=== PATIENT | female | born 1990 | race Caucasian/White ===

== ENCOUNTER 2017-05-07 21:27 | Emergency (ER) | payer SELFPAY ==
[~2017-05-07] VITALS: Ht 154.9 cm; Wt 60.0 kg
[2017-05-07 21:28] VITALS: BP 139/70; PULSE 90; RESP 16; TEMP 97.7; O2SAT 100
[2017-05-07] MEDS ORDERED: BACT400T PO (22:25)
[2017-05-07] MEDS ORDERED: SODIUM CHLOR 0.9% 1000 ML INJ 1,000 ML IV SCH (22:26)
[2017-05-07] MEDS ORDERED: diphenhydrAMINE HCL 50 MG/ML VIAL IVP ONE (22:30)
[2017-05-07] MEDS ORDERED: SODIUM CHLORIDE 0.9% FLUSH 10 ML FLUSH IV FLUSH PRN (22:30)
[2017-05-07] MEDS ORDERED: methylPREDNISolone SOD SUCC 125 MG/2 ML VIAL IV PUSH ONE (22:30)
[2017-05-07] MEDS ORDERED: FAMOTIDINE 20 MG/2 ML VIAL IV PUSH ONE (22:30)
--- NOTE | 2017-05-07 22:30 | PD ---
HPI Chief Complaint: Allergic/Adverse Reaction Time Seen by Provider: 22:21 Travel History International Travel<30 days: No Contact w/Intl Traveler<30days: No Traveled to known affect area: No History of Present Illness HPI 26-year-old female here for evaluation of possible allergic reaction. About 2 hours prior to my assessment the patient developed hive-like/pruritic lesions on her face, chest, and arms as well as swelling of her lip. She also feels a strain sensation in her throat. No respiratory difficulty. No difficulty swallowing. No abdominal pain, nausea, or vomiting. Patient is allergic to penicillin, however denies any other known allergies. She has history of IVDU, last use was one week ago, is currently on Bactrim for a cellulitis which she states has resolved. Patient also tells me that she ate peanuts earlier today, however has never had an allergic reaction to peanuts before. PFSH Past Medical History Medical History: Denies Significant Hx ?: Unknown Past Surgical History Surgical History: No Previous Surgery Social History Alcohol Use: Yes (OCCASIONALLY) Tobacco Use: Yes (06/08 PPD) Substance Use: Yes (LIAM FORMERLY) Allergies-Medications (Allergen,Severity, Reaction): Coded Allergies: penicillin G (Unverified Allergy, Intermediate, Hives, 05/07/17) Reported Meds & Prescriptions Reported Meds & Active Scripts Active Reported Bactrim (Sulfamethoxazole-Trimethoprim) 400-80 Mg Tab 1 Tab PO BID Review of Systems Except as stated in HPI: all other systems reviewed are Neg Physical Exam Narrative GENERAL: Well-developed, well-nourished, awake, alert, comfortable, no apparent distress. SKIN: Focused skin assessment warm/dry. Diffuse hive-like lesions. Tract lawler on left forearm without warmth or erythema. HEAD: Atraumatic. Normocephalic. EYES: Pupils equal and round. No scleral icterus. No injection or drainage. ENT: No nasal bleeding or discharge. Mucous membranes pink and moist. Mild lower lip swelling. No tongue swelling. No drooling or stridor. Normal phonation. NECK: Trachea midline. No JVD. CARDIOVASCULAR: Regular rate and rhythm. RESPIRATORY: No accessory muscle use. Clear to auscultation. Breath sounds equal bilaterally. GASTROINTESTINAL: Abdomen soft, non-tender, nondistended. MUSCULOSKELETAL: No obvious deformities. No clubbing. No cyanosis. No edema. NEUROLOGICAL: Awake and alert. No obvious cranial nerve deficits. Motor grossly within normal limits. Normal speech. PSYCHIATRIC: Appropriate mood and affect; insight and judgment normal. Data Data Last Documented VS Vital Signs Date Time Temp Pulse Resp B/P (MAP) Pulse Ox O2 Delivery O2 Flow Rate FiO2 05/07/17 22:32 94 18 125/77 (93) 100 Room Air 05/07/17 21:28 97.7 Orders Orders Basic Metabolic Panel (Bmp) (05/07/17 22:26) Complete Blood Count With Diff (05/07/17 22:26) Ecg Monitoring (05/07/17 22:26) Iv Access Insert/Monitor (05/07/17 22:26) Oximetry (05/07/17 22:) Diphenhydramine Inj (Benadryl Inj) (05/07/17 22:30) Methylprednisolone So Succ Inj (Solumedr (05/07/17 22:30) Famotidine Inj (Pepcid Inj) (05/07/17 22:30) Sodium Chlor 0.9% 1000 Ml Inj (Ns 1000 M (05/07/17 22:26) Sodium Chloride 0.9% Flush (Ns Flush) (05/07/17 22:30) Beta Hcg (Quant/Titer) (05/07/17 22:26) Labs Laboratory Tests Test 05/07/17 22:32 White Blood Count 9.4 TH/MM3 Red Blood Count 4.91 MIL/MM3 Hemoglobin 14.4 GM/DL Hematocrit 41.8 % Mean Corpuscular Volume 85.0 FL Mean Corpuscular Hemoglobin 29.3 PG Mean Corpuscular Hemoglobin Concent 34.4 % Red Cell Distribution Width 13.9 % Platelet Count 274 TH/MM3 Mean Platelet Volume 8.6 FL Neutrophils (%) (Auto) 68.0 % Lymphocytes (%) (Auto) 23.1 % Monocytes (%) (Auto) 8.1 % Eosinophils (%) (Auto) 0.6 % Basophils (%) (Auto) 0.2 % Neutrophils # (Auto) 6.4 TH/MM3 Lymphocytes # (Auto) 2.2 TH/MM3 Monocytes # (Auto) 0.8 TH/MM3 Eosinophils # (Auto) 0.1 TH/MM3 Basophils # (Auto) 0.0 TH/MM3 CBC Comment DIFF FINAL Differential Comment Blood Urea Nitrogen 9 MG/DL Creatinine 0.56 MG/DL Random Glucose 84 MG/DL Calcium Level 9.4 MG/DL Sodium Level 137 MEQ/L Potassium Level 4.0 MEQ/L Chloride Level 100 MEQ/L Carbon Dioxide Level 30.2 MEQ/L Anion Gap 7 MEQ/L Estimat Glomerular Filtration Rate 132 ML/MIN Human Chorionic Gonadotropin, Quant LESS THAN 1 MIU/ML MDM Medical Decision Making Medical Screen Exam Complete: Yes Emergency Medical Condition: Yes Differential Diagnosis Allergic reaction, anaphylaxis Narrative Course Patient is currently on Bactrim for a skin infection which she states has improved. She has been on it for about 1 week. She also ate peanuts today who advised that she avoid contact with both of these. Patient has had like lesions and mild lower lip swelling. She is certainly not an anaphylactic shock. She will be treated with IV Solu-Medrol, Pepcid, and IV Benadryl and will be observed for response to treatment. CBC and BMP are unremarkable. Beta hCG is negative. Patient was given IV Solu-Medrol, IV Pepcid, and IV Benadryl and was observed in the emergency department for several hours with significant improvement in symptoms. She feels better and would like to be discharged home. I'll discharge her home with a prescription for prednisone as well as an EpiPen. I have advised that she stop taking the Bactrim and avoid peanuts. She was advised follow-up with a primary care physician this week. She was informed on when to return to the emergency department. She verbalizes understanding and agreement with plan. Diagnosis Primary Impression: Allergic reaction Qualified Codes: T78.40XA - Allergy, unspecified, initial encounter Referrals: Primary Care Physician 3 days Additional Instructions: Follow-up with a primary care physician this week. Stop taking Bactrim. Avoid peanuts. Return to the emergency department for worsening symptoms or any other concerns. Scripts Epinephrine Inj (Epipen 2-Ghassan Inj) 0.3 Mg/0.3 Ml Pfpen 0.3 MG IM ONCE Y for ALLERGIC REACTION, #1 PACK 0 Refills Prov: Naeem Schultz MD 05/08/17 Prednisone (Prednisone) 50 Mg Tab 50 MG PO DAILY for 5 Days, #5 TAB 0 Refills Prov: Naeem Schultz MD 05/08/17 Disposition: 01 DISCHARGE HOME Condition: Stable Naeem Schultz MD May 07, 2017 22:30
[2017-05-07 22:32] VITALS: BP 125/77; PULSE 94; RESP 18; O2SAT 100
[2017-05-07 22:55] LABS: AUTOMATED NEUTROPHIL # 6.4 TH/MM3 (1.8-7.7); BASOPHIL % 0.2 % (0.0-2.0); EOSINOPHIL # 0.1 TH/MM3 (0-0.4); EOSINOPHIL % 0.6 % (0.0-4.0); HEMATOCRIT 41.8 % (35.0-46.0); HEMO FLAGS DIFF FINAL; LYMPH % 23.1 % (9.0-44.0); LYMPHOCYTE # 2.2 TH/MM3 (1.0-4.8); MEAN CORPUSCULAR HEMOGLOBIN 29.3 PG (27.0-34.0); MEAN CORPUSCULAR HGB CONC 34.4 % (32.0-36.0); MONO % 8.1 % (0.0-8.0); PLATELET COUNT 274 TH/MM3 (150-450); RED BLOOD COUNT 4.91 MIL/MM3 (4.00-5.30); RED CELL DISTRIBUTION WIDTH 13.9 % (11.6-17.2); WHITE BLOOD COUNT 9.4 TH/MM3 (4.0-11.0)
[2017-05-07 23:14] LABS: BETA HCG QUANT LESS THAN 1 MIU/ML (0-5)
[2017-05-07 23:18] LABS: ANION GAP 7 MEQ/L (5-15); BICARBONATE 30.2 MEQ/L (21.0-32.0); BLOOD UREA NITROGEN 9 MG/DL (7-18); CHLORIDE 100 MEQ/L (98-107); GLOMERULAR FILTRATION RATE 132 ML/MIN (>89); SODIUM (NA) 137 MEQ/L (136-145)
[2017-05-08] MEDS ORDERED: PRED50 PO (00:15)
[2017-05-08] MEDS ORDERED: EPIP0.3I IM (00:15)
[2017-05-08 00:16] VITALS: BP 113/75; PULSE 97; RESP 18; O2SAT 100
[2017-05-08 01:05] VITALS: BP 112/74; PULSE 86; RESP 18; O2SAT 99
[2017-05-08 01:25] VITALS: BP 132/74; PULSE 85; RESP 18; O2SAT 99
== END 2017-05-08 01:26 | disposition home or self-care (01) ==
LOC: NEPC 21:27
DX: T78.40XA Allergy, unspecified, initial encounter (principal); F17.200 Nicotine dependence, unspecified, uncomplicated; Z88.0 Allergy status to penicillin
CPT/HCPCS: 80048; 84702; 85025; 96374; 96375; 99284; J1200; J2930; J7030

== ENCOUNTER 2017-07-28 00:01 | Emergency (ER) | payer SELFPAY ==
[~2017-07-28] VITALS: Ht 157.5 cm; Wt 62.0 kg
[~2017-07-28 00:01] MED LIST: BACT400T PO; EPIP0.3I IM; PRED50 PO
[2017-07-28 00:04] VITALS: BP 152/79; PULSE 122; RESP 16; TEMP 100.5; O2SAT 97
[2017-07-29] MEDS ORDERED: BACT800T5 PO (01:11)
== END 2017-07-28 01:35 | disposition left against medical advice (07) ==
LOC: NED 00:01
DX: R22.9 Localized swelling, mass and lump, unspecified (principal); Z53.21 Procedure and treatment not carried out due to patient leaving prior to being seen by health care provider
CPT/HCPCS: 99281

== ENCOUNTER 2017-07-28 23:22 | Emergency (ER) | payer SELFPAY ==
[~2017-07-28] VITALS: Ht 157.5 cm; Wt 65.0 kg
[2017-07-28 23:23] VITALS: BP 141/80; PULSE 127; RESP 16; TEMP 99.4; O2SAT 95
--- NOTE | 2017-07-29 01:10 | PD ---
HPI Chief Complaint: Skin Problem Time Seen by Provider: 00:48 Travel History International Travel<30 days: No Contact w/Intl Traveler<30days: No Traveled to known affect area: No History of Present Illness HPI 26-year-old white female IV drug abuser presents emergency department with recurrent abscess to her right forearm from IV drug abuse. Patient denies any fever chills. Symptoms are moderate. No alleviating factors. Worsened by IV drug abuse. Up-to-date with immunizations. Pain is mild. PFSH Past Medical History Narrative Medical Abscess, IV drug abuse Immunizations Current: Yes Tetanus Vaccination: < 5 Years Influenza Vaccination: No ?: Unknown LMP: 06/29/17 Past Surgical History Surgical History: No Previous Surgery Social History Alcohol Use: Yes (OCCASIONALLY) Tobacco Use: Yes (06/08 PPD) Substance Use: Yes (LIAM FORMERLY) Allergies-Medications (Allergen,Severity, Reaction): Coded Allergies: penicillin G (Unverified Allergy, Intermediate, Hives, 07/28/17) Reported Meds & Prescriptions Reported Meds & Active Scripts Active Epipen 2-Ghassan Inj (Epinephrine) 0.3 Mg/0.3 Ml Pfpen 0.3 Mg IM ONCE PRN Prednisone 50 Mg Tab 50 Mg PO DAILY 5 Days Reported Bactrim (Sulfamethoxazole-Trimethoprim) 400-80 Mg Tab 1 Tab PO BID Review of Systems General / Constitutional: No: Fever Eyes: No: Visual changes HENT: No: Headaches Cardiovascular: No: Chest Pain or Discomfort Respiratory: No: Shortness of Breath Gastrointestinal: No: Abdominal Pain Genitourinary: No: Dysuria Musculoskeletal: No: Pain Skin: Positive Rash, Positive Lumps Neurologic: No: Weakness Psychiatric: No: Depression Endocrine: No: Polydipsia Hematologic/Lymphatic: No: Easy Bruising Physical Exam Narrative GENERAL: Well-developed, well-nourished in no acute distress. Nontoxic appearing. HEAD: Normocephalic, atraumatic. EYES: Pupils equal round and reactive. Extraocular motions intact. No scleral icterus. No injection or drainage. ENT: TMs clear without erythema. The external auditory canals clear. Nose: clear . Posterior pharynx is pink and moist. No tonsillar edema or exudate. Uvula midline. Airway patent. NECK: Trachea midline.Supple, nontender, moves head freely. No central bony tenderness or spasm. CARDIOVASCULAR: Regular rate and rhythm without murmurs, gallops, or rubs. RESPIRATORY: Clear to auscultation. Breath sounds equal bilaterally. No wheezes , rales, or rhonchi. GASTROINTESTINAL: Abdomen soft, non-tender, nondistended. No hepato-splenomegaly , or palpable masses. No guarding. EXTREMITIES: No clubbing, cyanosis, or edema. No joint tenderness, effusion, or edema noted. Patient has multiple track lawler on both hands, forearms, and an acute ophiasis. Patient has multiple superficial abscesses to the dorsal right wrist and forearm. BACK: Nontender without deformity or crepitance. No flank tenderness. Data Data Last Documented VS Vital Signs Date Time Temp Pulse Resp B/P (MAP) Pulse Ox O2 Delivery O2 Flow Rate FiO2 07/28/17 23:23 99.4 127 16 141/80 (100) 95 Room Air MDM Medical Decision Making Medical Screen Exam Complete: Yes Emergency Medical Condition: Yes Medical Record Reviewed: Yes Differential Diagnosis MDM: High Differential diagnoses: Abscess, folliculitis, cellulitis, lymphangitis, abrasion, contact dermatitis Narrative Course Incision and drainage has been performed. Patient was given Bactrim DS. Procedures Procedure Narrative I&D abscess: 3 right forearm After the risks and benefits were discussed the following procedure was performed. The skin is prepped and draped in the usual sterile fashion using Betadine. The abscess is anesthetized with 1% lidocaine with epinephrine. After adequate anesthesia, an 11 blade scalpel is used to make a 1.5 cm central incision. Perulant material is expressed. The wound is cleansed deeply using saline on Q- tips. The wound is packed open using iodoform gauze. A clean dressing is applied. The patient tolerated the procedure well. There was no complications. Follow-up instructions were given to the patient. Diagnosis Primary Impression: Right forearm abscesses Additional Impression: IV drug abuse Patient Instructions: General Instructions Additional Instructions: Rest. Elevation. keep clean and dry. remove the packing in two days. Daily wound care with soap, water and Neosporin. Three Advil every 6 hours. Bactrim DS. Follow-up with [facility] for detox. Follow-up with a primary care doctor in 2-3 days. Return to the ER for any problems. Med/Other Pt SpecificInfo: Prescription(s) given Disposition: 01 DISCHARGE HOME Condition: Stable Kevin Samano Jul 29, 2017 01:10
[2017-07-29] MEDS ORDERED: BACT800T5 PO (01:11)
[2017-07-29] MEDS ORDERED: LIDOCAINE 1%/EPINEPHrine 1:100,000 SOLN 20 ML VIAL INFIL ONE (01:15)
[2017-07-29] MEDS ORDERED: LIDOCAINE 1%/EPINEPHrine 1:100,000 SOLN 30 ML VIAL INFIL ONE (02:00)
== END 2017-07-29 01:31 | disposition home or self-care (01) ==
LOC: NEPD 23:22
DX: L02.413 Cutaneous abscess of right upper limb (principal); F19.10 Other psychoactive substance abuse, uncomplicated; F17.200 Nicotine dependence, unspecified, uncomplicated; Z88.0 Allergy status to penicillin
CPT/HCPCS: 10061

== ENCOUNTER 2017-09-08 20:15 | Inpatient (IN) | payer SELFPAY ==
[~2017-09-08] VITALS: Ht 154.9 cm; Wt 55.4 kg
[~2017-09-08 20:15] MED LIST changes: +BACT800T5 PO
[2017-09-08 20:22] VITALS: BP 139/75; PULSE 118; RESP 16; TEMP 102.5; O2SAT 100
[2017-09-08] MEDS ORDERED: IBUPROFEN 800 MG TAB PO ONE (23:45)
[2017-09-08] MEDS ORDERED: SODIUM CHLOR 0.9% 1000 ML INJ 1,000 ML IV ONE (23:45)
[2017-09-08] MEDS ORDERED: SODIUM CHLOR 0.9% 1000 ML INJ 800 ML IV ONE (23:45)
[2017-09-09] VITALS (9 sets, daily range): BP systolic 109–129; BP diastolic 55–76; PULSE 89–100; RESP 16–20; TEMP 96.1–99.9; O2SAT 98–100
--- NOTE | 2017-09-09 00:18 | PD ---
HPI Chief Complaint: Skin Problem Time Seen by Provider: 23:33 Travel History International Travel<30 days: No Contact w/Intl Traveler<30days: No Traveled to known affect area: No History of Present Illness HPI Patient is a 26-year-old female presenting to emerge from for evaluation of left forearm abscess. Patient admits to injecting IV heroin, her symptoms started 1 week ago getting progressively worse. Patient states her pain is a 7 out of 10 and shooting and stabbing in nature. The pain is intermittent in nature, she reports feeling pressure into her thumb. Patient is not taking anything to alleviate the pain. Symptom onset was gradual, symptoms are severe in nature. She denies any fever or chills but states she does not feel well. She further denies any nausea, vomiting, headache, abdominal pain or chest pain. PFSH Past Medical History Medical History: Denies Significant Hx Immunizations Current: Yes Influenza Vaccination: No ?: Not LMP: UNKNOWN : 1 Para: 1 Past Surgical History Surgical History: No Previous Surgery Social History Alcohol Use: No Tobacco Use: Yes (06/08 PPD) Substance Use: Yes (LIAM FORMERLY) Allergies-Medications (Allergen,Severity, Reaction): Coded Allergies: penicillin G (Unverified Allergy, Intermediate, Hives, 09/08/17) Reported Meds & Prescriptions Reported Meds & Active Scripts Active Bactrim DS (Sulfamethoxazole-Trimethoprim) 800-160 Mg Tab 1 Tab PO BID Epipen 2-Ghassan Inj (Epinephrine) 0.3 Mg/0.3 Ml Pfpen 0.3 Mg IM ONCE PRN Prednisone 50 Mg Tab 50 Mg PO DAILY 5 Days Reported Bactrim (Sulfamethoxazole-Trimethoprim) 400-80 Mg Tab 1 Tab PO BID Review of Systems Except as stated in HPI: all other systems reviewed are Neg General / Constitutional: Positive: Fever, Chills HENT: No: Headaches Cardiovascular: No: Chest Pain or Discomfort Respiratory: No: Shortness of Breath Gastrointestinal: No: Nausea, Abdominal Pain Musculoskeletal: Positive: Myalgias, Pain Skin: Positive Lumps, Positive Change in Pigmentation Neurologic: No: Weakness Physical Exam Narrative GENERAL: Thin, well-developed, intoxicated appearing female. Presenting in no acute distress. SKIN: Warm and dry. 10 cm x 5 cm area of induration to the left antecubital fossa, there are 2 areas of fluctuance just distal to the AC. Warmth and tenderness on palpation. HEAD: Atraumatic. Normocephalic. EYES: Pupils equal and round. No scleral icterus. No injection or drainage. ENT: No nasal bleeding or discharge. Mucous membranes pink and moist. NECK: Trachea midline. No JVD. CARDIOVASCULAR: Tachycardic RESPIRATORY: No accessory muscle use. Clear to auscultation. Breath sounds equal bilaterally. GASTROINTESTINAL: Abdomen soft, non-tender, nondistended. Hepatic and splenic margins not palpable. MUSCULOSKELETAL: Extremities without clubbing, cyanosis, or edema. No obvious deformities. NEUROLOGICAL: Awake and alert. No obvious cranial nerve deficits. Motor grossly within normal limits. Five out of 5 muscle strength in the arms and legs. Normal speech. PSYCHIATRIC: Appropriate mood and affect; insight and judgment normal. Data Data Last Documented VS Vital Signs Date Time Temp Pulse Resp B/P (MAP) Pulse Ox O2 Delivery O2 Flow Rate FiO2 09/09/17 01:05 95 16 100 Room Air 09/08/17 20:22 102.5 Orders Orders Sepsis Workup Initiated (09/08/17 ) Complete Blood Count With Diff (09/08/17 23:45) Comprehensive Metabolic Panel (09/08/17 23:45) Lactic Acid Sepsis Protocol (09/08/17 23:45) Blood Culture (09/08/17 23:45) Chest, Single Ap (09/08/17 23:45) Blood Glucose (09/08/17 23:45) Ecg Monitoring (09/08/17 23:45) Iv Access Insert/Monitor (09/08/17 23:45) Oximetry (09/08/17 23:45) Ibuprofen (Motrin) (09/08/17 23:45) Sodium Chlor 0.9% 1000 Ml Inj (Ns 1000 M (09/08/17 23:45) Sodium Chlor 0.9% 1000 Ml Inj (Ns 1000 M (09/08/17 23:45) Ct Forearm W Iv Contrast (09/08/17 ) Ct Humerus W Iv Contrast (09/08/17 ) Ed Urine Pregnancytest Poc (09/08/17 23:45) Electrocardiogram (09/08/17 ) Labs Laboratory Tests Test 09/09/17 00:15 White Blood Count 11.6 TH/MM3 Red Blood Count 5.12 MIL/MM3 Hemoglobin 13.8 GM/DL Hematocrit 41.4 % Mean Corpuscular Volume 80.9 FL Mean Corpuscular Hemoglobin 27.0 PG Mean Corpuscular Hemoglobin Concent 33.4 % Red Cell Distribution Width 13.7 % Platelet Count 277 TH/MM3 Mean Platelet Volume 8.0 FL Neutrophils (%) (Auto) 77.5 % Lymphocytes (%) (Auto) 13.6 % Monocytes (%) (Auto) 6.5 % Eosinophils (%) (Auto) 1.9 % Basophils (%) (Auto) 0.5 % Neutrophils # (Auto) 9.0 TH/MM3 Lymphocytes # (Auto) 1.6 TH/MM3 Monocytes # (Auto) 0.8 TH/MM3 Eosinophils # (Auto) 0.2 TH/MM3 Basophils # (Auto) 0.1 TH/MM3 CBC Comment DIFF FINAL Differential Comment Blood Urea Nitrogen 9 MG/DL Creatinine 0.62 MG/DL Random Glucose 90 MG/DL Total Protein 8.9 GM/DL Albumin 3.8 GM/DL Calcium Level 9.6 MG/DL Alkaline Phosphatase 131 U/L Aspartate Amino Transf (AST/SGOT) 45 U/L Alanine Aminotransferase (ALT/SGPT) 68 U/L Total Bilirubin 0.5 MG/DL Sodium Level 136 MEQ/L Potassium Level 3.7 MEQ/L Chloride Level 99 MEQ/L Carbon Dioxide Level 28.9 MEQ/L Anion Gap 8 MEQ/L Estimat Glomerular Filtration Rate 117 ML/MIN Lactic Acid Level 1.1 mmol/L [facility] Medical Decision Making Medical Screen Exam Complete: Yes Emergency Medical Condition: Yes Interpretation(s) Vital Signs Date Time Temp Pulse Resp B/P (MAP) Pulse Ox O2 Delivery O2 Flow Rate FiO2 09/08/17 20:22 102.5 118 16 139/75 (96) 100 Room Air Differential Diagnosis Sepsis versus cellulitis versus abscess versus metabolic abnormality versus other Narrative Course Patient is a 26-year-old IV drug user presenting with fever, tachycardia and abscesses to her left AC. Sepsis workup initiated. Ibuprofen, IV fluids ordered. Care of patient transferred to Dr. Osborne in a medical bed due to level of acuity. Stephanie Jiang Sep 09, 2017 00:18
[2017-09-09 00:32] LABS: BASOPHIL # 0.1 TH/MM3 (0-0.2); BASOPHIL % 0.5 % (0.0-2.0); EOSINOPHIL # 0.2 TH/MM3 (0-0.4); EOSINOPHIL % 1.9 % (0.0-4.0); HEMATOCRIT 41.4 % (35.0-46.0); HEMOGLOBIN 13.8 GM/DL (11.6-15.3); LYMPH % 13.6 % (9.0-44.0); LYMPHOCYTE # 1.6 TH/MM3 (1.0-4.8); MEAN CELL VOLUME 80.9 FL (80.0-100.0); MEAN CORPUSCULAR HGB CONC 33.4 % (32.0-36.0); MONO % 6.5 % (0.0-8.0); MONOCYTE # 0.8 TH/MM3 (0-0.9); NEUT % 77.5 % (16.0-70.0); PLATELET COUNT 277 TH/MM3 (150-450); RED BLOOD COUNT 5.12 MIL/MM3 (4.00-5.30); RED CELL DISTRIBUTION WIDTH 13.7 % (11.6-17.2); WHITE BLOOD COUNT 11.6 TH/MM3 (4.0-11.0)
[2017-09-09 00:48] LABS: ALBUMIN 3.8 GM/DL (3.4-5.0); ALT (GPT) 68 U/L (10-53); AST (GOT) 45 U/L (15-37); BICARBONATE 28.9 MEQ/L (21.0-32.0); BLOOD UREA NITROGEN 9 MG/DL (7-18); CALCIUM 9.6 MG/DL (8.5-10.1); CHLORIDE 99 MEQ/L (98-107); CREATININE 0.62 MG/DL (0.50-1.00); GLOMERULAR FILTRATION RATE 117 ML/MIN (>89); GLUCOSE,RANDOM 90 MG/DL (74-106); SODIUM (NA) 136 MEQ/L (136-145)
[2017-09-09 00:50] LABS: ALKALINE PHOSPHATASE 131 U/L (45-117); TOTAL BILIRUBIN ADULT 0.5 MG/DL (0.2-1.0); TOTAL PROTEIN 8.9 GM/DL (6.4-8.2)
--- NOTE | 2017-09-09 01:22 | RADRPT ---
EXAM DATE/TIME: 09/09/2017 00:22 [facility] COMPARISON: CHEST SINGLE AP, May 10, 2016, 12:54. INDICATIONS : Left upper arm abscess with fever. MEDICAL HISTORY : None. SURGICAL HISTORY : None. ENCOUNTER: Initial ACUITY: 1 day PAIN SCORE: 0/10 LOCATION: Bilateral chest FINDINGS: Single AP view of the chest. The lungs are clear. Cardiomediastinal silhouette within normal limits. No evidence of pleural effusion or pneumothorax. CONCLUSION: No acute cardiopulmonary disease identified. Moy Silva MD on September 09, 2017 at 1:20 Board Certified Radiologist. This report was verified electronically.
[2017-09-09] MEDS ORDERED: LIDOCAINE 2%/EPINEPHrine 1:100,000 20ML MDV NERV BLOCK ONE (01:45)
[2017-09-09] MEDS ORDERED: VANCOMYCIN INJ 1,000 MG in SODIUM CHLOR 0.9% 250 ML INJ 250 ML IV ONE (02:00)
[2017-09-09] MEDS ORDERED: BISACODYL 10 MG SUPP RECTAL PRN (03:30)
[2017-09-09] MEDS ORDERED: ONDANSETRON HCL 4 MG/2 ML VIAL IVP PRN (03:30)
[2017-09-09] MEDS ORDERED: SODIUM CHLORIDE 0.9% FLUSH 10 ML FLUSH IV FLUSH PRN (03:30)
[2017-09-09] MEDS ORDERED: LACTULOSE SYRUP 20 GM/30 ML CUP PO PRN (03:30)
[2017-09-09] MEDS ORDERED: ACETAMINOPHEN 325 MG TAB PO PRN (03:30)
[2017-09-09] MEDS ORDERED: MAGNESIUM HYDROXIDE SUSP 30 ML CUP PO PRN (03:30)
[2017-09-09] MEDS ORDERED: Vancomycin Consult Pharmacy 1 EA OTHER SCH (03:30)
[2017-09-09] MEDS ORDERED: ACETAMINOPHEN/HYDROcodone 325 MG/5 MG TAB PO PRN (03:30)
[2017-09-09] MEDS ORDERED: SENNOSIDES 8.6 MG TAB PO PRN (03:30)
[2017-09-09] MEDS: SODIUM CHLOR 0.9% 1000 ML INJ 1,000 ML IV SCH ×2 (04:00→15:24)
--- NOTE | 2017-09-09 04:05 | HHI.HP ---
[facility] No Primary Care Physician Admission Diagnosis arm abscess x 2 and sepsis Diagnoses: (1) Sepsis Diagnosis: Principal (2) Abscess Diagnosis: Principal (3) IVDU (intravenous drug user) Diagnosis: Principal (4) Tobacco abuse Diagnosis: Principal Travel History International Travel<30 Days: No Contact w/Intl Traveler <30 Da: No Traveled to Known Affected Are: No History of Present Illness This is a 26-year-old female with a PMH of IVDU and Tobacco Abuse who presented to the ER with complaints of left forearm pain and swelling. Admits to injecting Heroin to left forearm recently. Reports symptoms ongoing for approx 1wk. Pain is constant, severe, 8/10, non-radiating, worse w/ movement. Denies associated fever or chills. On arrival, BP 139/75, HR 118, O2 sat 100% on RA, Temp 102.5. WBC 11.6. Chemistry unremarkable. LFTs mildly elevated. Lactic Acid normal. CXR with no acute findings. S/p I&D in ER, Blood Cultures and Vanc IV. Pt initially wanting to LEAVE [facility], however has ultimately agreed to stay for treatment. Review of Systems Except as stated in HPI: all other systems reviewed are Neg ROS: 14 point review of systems otherwise negative. Past Family Social History Past Medical History PMH: IVDU and Tobacco Abuse Past Surgical History PAST SURGICAL HISTORY: None Allergies: Coded Allergies: penicillin G (Unverified Allergy, Intermediate, Hives, 09/08/17) Family History PAST FAMILY HISTORY: Reviewed. No h/o DM or CAD Social History PAST SOCIAL HISTORY: Negative for alcohol. Smokes 1/4 ppd. +IVDU w/ Heroin, h/ o Cocaine and Marijuana. Physical Exam Vital Signs Vital Signs Date Time Temp Pulse Resp B/P (MAP) Pulse Ox O2 Delivery O2 Flow Rate FiO2 09/09/17 01:05 95 16 100 Room Air 09/08/17 20:22 102.5 118 16 139/75 (96) 100 Room Air Physical Exam PE: GENERAL: Young white female in no acute distress. Significant other at bedside. HEENT: PERRLA, EOMI. No scleral icterus or conjunctival pallor. No lid lag or facial droop. CARDIOVASCULAR: Regular rate and rhythm. No obvious murmurs to auscultation. No chest tenderness to palpation. RESPIRATORY: No obvious rhonchi or wheezing. Clear to auscultation. Breath sounds equal bilaterally. GASTROINTESTINAL: Abdomen soft, non-tender, nondistended. BS normal. MUSCULOSKELETAL: Extremities without clubbing, cyanosis, or edema. No obvious deformities. LUE s/p I&D, +erythema/edema NEUROLOGICAL: Awake, alert and oriented x4. No focal neurologic deficits. Moving both upper and lower extremities spontaneously. Laboratory Laboratory Tests Test 09/09/17 00:15 White Blood Count 11.6 Red Blood Count 5.12 Hemoglobin 13.8 Hematocrit 41.4 Mean Corpuscular Volume 80.9 Mean Corpuscular Hemoglobin 27.0 Mean Corpuscular Hemoglobin Concent 33.4 Red Cell Distribution Width 13.7 Platelet Count 277 Mean Platelet Volume 8.0 Neutrophils (%) (Auto) 77.5 Lymphocytes (%) (Auto) 13.6 Monocytes (%) (Auto) 6.5 Eosinophils (%) (Auto) 1.9 Basophils (%) (Auto) 0.5 Neutrophils # (Auto) 9.0 Lymphocytes # (Auto) 1.6 Monocytes # (Auto) 0.8 Eosinophils # (Auto) 0.2 Basophils # (Auto) 0.1 CBC Comment DIFF FINAL Differential Comment Blood Urea Nitrogen 9 Creatinine 0.62 Random Glucose 90 Total Protein 8.9 Albumin 3.8 Calcium Level 9.6 Alkaline Phosphatase 131 Aspartate Amino Transf (AST/SGOT) 45 Alanine Aminotransferase (ALT/SGPT) 68 Total Bilirubin 0.5 Sodium Level 136 Potassium Level 3.7 Chloride Level 99 Carbon Dioxide Level 28.9 Anion Gap 8 Estimat Glomerular Filtration Rate 117 Lactic Acid Level 1.1 Date/Time Source Procedure Growth Status 09/09/17 00:22 Blood Peripheral Aerobic Blood Culture Pending Received 09/09/17 00:22 Blood Peripheral Anaerobic Blood Culture Pending Received 09/09/17 03:25 Wound Arm Gram Stain Pending Received 09/09/17 03:25 Wound Arm Wound Culture Pending Received Result Diagram: 09/09/17 0015 09/09/1714 Caprini VTE Risk Assessment Caprini VTE Risk Assessment: No/Low Risk (score <= 1) Caprini Risk Assessment Model Point Value = 1 Point Value = 2 Point Value = 3 Point Value = 5 Age 41-60 Minor surgery BMI > 25 kg/m2 Swollen legs Varicose veins or History of unexplained or recurrent spontaneous Oral contraceptives or hormone replacement Sepsis (< 1 month) Serious lung disease, including pneumonia (< 1 month) Abnormal pulmonary function Acute myocardial infarction Congestive heart failure (< 1 month) History of inflammatory bowel disease Medical patient at bed rest Age 61-74 Arthroscopic surgery Major open surgery (> 45 min) Laparoscopic surgery (> 45 min) Malignancy Confined to bed (> 72 hours) Immobilizing plaster cast Central venous access Age >= 75 History of VTE Family history of VTE Factor V Leiden Prothrombin [id number] Lupus anticoagulant Anticardiolipin antibodies Elevated serum homocysteine Heparin-induced thrombocytopenia Other congenital or acquired thrombophilia Stroke (< 1 month) Elective arthroplasty Hip, pelvis, or leg fracture Acute spinal cord injury (< 1 month) Prophylaxis Regimen Total Risk Factor Score Risk Level Prophylaxis Regimen 0-1 Low Early ambulation 2 Moderate Order ONE of the following: *Sequential Compression Device (SCD) *Heparin 5000 units SQ BID 3-4 Higher Order ONE of the following medications: *Heparin 5000 units SQ TID *Enoxaparin/Lovenox 40 mg SQ daily (WT < 150 kg, CrCl > 30 mL/min) *Enoxaparin/Lovenox 30 mg SQ daily (WT < 150 kg, CrCl > 10-29 mL/min) *Enoxaparin/Lovenox 30 mg SQ BID (WT < 150 kg, CrCl > 30 mL/min) AND/OR *Sequential Compression Device (SCD) 5 or more Highest Order ONE of the following medications: *Heparin 5000 units SQ TID (Preferred with Epidurals) *Enoxaparin/Lovenox 40 mg SQ daily (WT < 150 kg, CrCl > 30 mL/min) *Enoxaparin/Lovenox 30 mg SQ daily (WT < 150 kg, CrCl > 10-29 mL/min) *Enoxaparin/Lovenox 30 mg SQ BID (WT < 150 kg, CrCl > 30 mL/min) AND *Sequential Compression Device (SCD) Assessment and Plan Problem List: (1) Sepsis ICD Code: A41.9 - Sepsis, unspecified organism (2) Abscess ICD Code: L02.91 - Cutaneous abscess, unspecified (3) Tobacco abuse ICD Code: Z72.0 - Tobacco use (4) IVDU (intravenous drug user) ICD Code: F19.90 - Other psychoactive substance use, unspecified, uncomplicated Assessment and Plan A/P: 1. Sepsis: Temp 102.5, HR 120's, WBC 11.6, Source-LUE Abscess. S/p I&D, follow Wound Culture and Blood Cultures. S/p Vanc in ER, will continue w/ IV Abx. 2. LUE Abscess: h/o IVDU w/ recent injection to site, now w/ abscess s/p I&D, follow up cultures, continue w/ IV Vanc/Cefepime. IVF for hydration. 3. IVDU: +Heroin, h/o Cocaine, admits to recent injection. Wanting to LEAVE AMA at first, +anxious. Start Clonidine po q8h and Ativan prn for withdrawal. 4. Tobacco Abuse: Pt counselled. Ativan/NicoDerm prn if needed. 5. DVT Prophylaxis: SCD/Teds. 6. Social work for d/c planning as needed. 7. Case discussed w/ ER physician at length, labs/records/imaging reviewed by [place] Physician Certification 2 Midnight Certification Type: Admission for Inpatient Services Order for Inpatient Services The services are ordered in accordance with Medicare regulations or non- Medicare payer requirements, as applicable. In the case of services not specified as inpatient-only, they are appropriately provided as inpatient services in accordance with the 2-midnight benchmark. Estimated LOS (days): 2 days is the estimated time the patient will need to remain in the hospital, assuming treatment plan goals are met and no additional complications. Post-Hospital Plan: Not yet determined Lenore Plunkett MD Sep 09, 2017 04:05
[2017-09-09] MEDS: CEFEPIME INJ 1,000 MG in SODIUM CHLORIDE 0.9% INJ 100 ML IV SCH ×2 (05:37→17:54)
[2017-09-09] MEDS: cloNIDine HCL 0.1 MG TAB PO SCH ×3 (06:00→21:25)
[2017-09-09] MEDS: LORazepam 2 MG/ML VIAL IV PUSH PRN ×2 (06:10→21:24)
[2017-09-09] MEDS ORDERED: KETOROLAC TROMETHAMINE 30 MG/ML (IVP) VIAL IV PUSH ONE (06:15)
[2017-09-09] MEDS ORDERED: VANCOMYCIN 1,000 MG/NS 250 ML IV SCH ×4 (09:00→15:00)
[2017-09-09] MEDS: DOCUSATE SODIUM 50 MG/SENNA 8.6 MG TAB PO SCH ×2 (09:00→21:00)
[2017-09-09] MEDS: MORPHINE SULFATE 2 MG/ML SYRINGE IV PUSH PRN ×2 (15:56→21:25)
--- NOTE | 2017-09-09 17:29 | EKG ---
Date Performed: 09/09/2017 Time Performed: 01:30:52 PTAGE: 26 years EKG: Sinus rhythm Compared to previous tracing, ST-T changes have improved NORMAL ECG NO PREVIOUS TRACING DOCTOR: Osvaldo Jaquez Interpretating Date/Time 09/09/2017 17:28:16
[2017-09-09] MEDS: SODIUM CHLORIDE 0.9% FLUSH 10 ML FLUSH IV FLUSH SCH ×2 (21:24→21:26)
[2017-09-10] MEDS ORDERED: INFLUENZA VIRUS VACCINE (QUADRIVALENT) 0.5 ML SYR IM ONE (10:00)
[2017-09-10] MEDS ORDERED: PHARMACY ORDERED LAB ONE (14:45)
--- NOTE | 2017-09-22 23:57 | PD ---
Physical Exam Narrative Patient transferred to my area of the ER where I proceeded to do a I&D on 2 forearm abscesses on the left arm in the antecubital forearm area. After that I decided I should admit her for IV antibiotics I gave her a gram of vancomycin IV fluid Data Data Orders Orders Sepsis Workup Initiated (09/08/17 ) Complete Blood Count With Diff (09/08/17 23:45) Comprehensive Metabolic Panel (09/08/17 23:45) Lactic Acid Sepsis Protocol (09/08/17 23:45) Blood Culture (09/08/17 23:45) Chest, Single Ap (09/08/17 23:45) Blood Glucose (09/08/17 23:45) Ecg Monitoring (09/08/17 23:45) Iv Access Insert/Monitor (09/08/17 23:45) Oximetry (09/08/17 23:45) Ibuprofen (Motrin) (09/08/17 23:45) Sodium Chlor 0.9% 1000 Ml Inj (Ns 1000 M (09/08/17 23:45) Sodium Chlor 0.9% 1000 Ml Inj (Ns 1000 M (09/08/17 23:45) Ed Urine Pregnancytest Poc (09/08/17 23:45) Electrocardiogram (09/08/17 ) Lidocai-Epi 2%-1:100,000 Inj (Xylocaine- (09/09/17 01:45) Vancomycin Inj (Vancomycin Inj) (09/09/17 02:00) Wound Culture And Gram Stain (09/09/17 03:22) Admit To Inpatient (09/09/17 ) Vital Signs (Adult) Q4H (09/09/17 03:27) Activity Oob Ad Radha (09/09/17 03:27) Materials Mgmt Tech / Telemetry .CONTINUOUS (09/09/17 03:27) Intake + Output TANIYA.QSHIFT (09/09/17 03:27) Diet Regular Basic (09/09/17 Breakfast) Sodium Chlor 0.9% 1000 Ml Inj (Ns 1000 M (09/09/17 03:27) Sodium Chloride 0.9% Flush (Ns Flush) (09/09/17 03:30) Sodium Chloride 0.9% Flush (Ns Flush) (09/09/17 09:00) Ondansetron Inj (Zofran Inj) (09/09/17 03:30) Case Management Consult (09/09/17 03:27) Scd Bilateral/Knee High TANIYA.BID (09/09/17 03:27) Bc Bilateral/Knee High TANIYA.QSHIFT (09/09/17 03:28) Acetaminophen (Tylenol) (09/09/17 03:30) Acetamin-Hydrocod 325-5 Mg ([place] 5-325 (09/09/17 03:30) Morphine Inj (Morphine Inj) (09/09/17 03:30) Docusate Sodium-Senna (Sigrid-Colace) (09/09/17 09:00) Magnesium Hydroxide Liq (Milk Of Magnesi (09/09/17 03:30) Sennosides (Senokot) (09/09/17 03:30) Bisacodyl Supp (Dulcolax Supp) (09/09/17 03:30) Lactulose Liq (Lactulose Liq) (09/09/17 03:30) Inpatient Certification (09/09/17 ) Vancomycin Consult Pharmacy (Vancomycin (09/09/17 03:30) Cefepime Inj (Maxipime Inj) (09/09/17 06:00) Labs Laboratory Tests Test 09/09/17 00:15 White Blood Count 11.6 TH/MM3 Red Blood Count 5.12 MIL/MM3 Hemoglobin 13.8 GM/DL Hematocrit 41.4 % Mean Corpuscular Volume 80.9 FL Mean Corpuscular Hemoglobin 27.0 PG Mean Corpuscular Hemoglobin Concent 33.4 % Red Cell Distribution Width 13.7 % Platelet Count 277 TH/MM3 Mean Platelet Volume 8.0 FL Neutrophils (%) (Auto) 77.5 % Lymphocytes (%) (Auto) 13.6 % Monocytes (%) (Auto) 6.5 % Eosinophils (%) (Auto) 1.9 % Basophils (%) (Auto) 0.5 % Neutrophils # (Auto) 9.0 TH/MM3 Lymphocytes # (Auto) 1.6 TH/MM3 Monocytes # (Auto) 0.8 TH/MM3 Eosinophils # (Auto) 0.2 TH/MM3 Basophils # (Auto) 0.1 TH/MM3 CBC Comment DIFF FINAL Differential Comment Blood Urea Nitrogen 9 MG/DL Creatinine 0.62 MG/DL Random Glucose 90 MG/DL Total Protein 8.9 GM/DL Albumin 3.8 GM/DL Calcium Level 9.6 MG/DL Alkaline Phosphatase 131 U/L Aspartate Amino Transf (AST/SGOT) 45 U/L Alanine Aminotransferase (ALT/SGPT) 68 U/L Total Bilirubin 0.5 MG/DL Sodium Level 136 MEQ/L Potassium Level 3.7 MEQ/L Chloride Level 99 MEQ/L Carbon Dioxide Level 28.9 MEQ/L Anion Gap 8 MEQ/L Estimat Glomerular Filtration Rate 117 ML/MIN Lactic Acid Level 1.1 mmol/L MDM Supervised Visit with JANE: Yes Differential Diagnosis Differential diagnosis includes abscess versus cellulitis versus foreign body versus IVDA abuse with retained needle other Narrative Course Patient was seen in the deep followed by PA who wrote up her exam and examined her the attending wanted to do CTs before I&D procedure. I decided that I I&D would be done by me and I would not need a CT of the arm prior. Successful I&D with much pus expressed aurelio placed into both abscess that were opened up pus expressed culture sent. Vancomycin 1 g and admit to hospitalist for further cultures as well as repeat doses of vancomycin prior to discharge Procedures Procedure Narrative Patient had 2 areas that were had abscesses on her left forearm on the volar aspect just distal to the antecubital fossa sterile technique Betadine applied lidocaine 2% with epi used to anesthetize the area then with an 11 blade I was able to make an incision on the larger of the 2 abscesses and expressed much pus a wick was placed. Second abscess was prepped in the same way Betadine 2% with epi injected 1 cc 11 blade introduced pus expressed and a iodoform wick was placed packing for both of the abscesses then wrapped with Katie to allow for further drainage and admitted to the hospitalist for IV vancomycin Diagnosis Primary Impression: Abscess Additional Impression: Cellulitis of left forearm Sarbjit Osborne MD Sep 22, 2017 23:57
== END 2017-09-09 23:02 | disposition left against medical advice (07) | DRG 872 ==
LOC: NEPD 20:15 → NEDA 09-09 03:29 → NEDH 09-09 06:28 → N04A 09-09 15:13
PROVIDERS: ADMIT Family Medicine; ATTEND Family Medicine
PROC: 0H9 Skin and Breast, Drainage (ICD-10-PCS; principal; 2017-09-08)
DX: A41.9 Sepsis, unspecified organism (principal); L02.414 Cutaneous abscess of left upper limb; F19.90 Other psychoactive substance use, unspecified, uncomplicated; F17.210 Nicotine dependence, cigarettes, uncomplicated
CPT/HCPCS: 71045; 80053; 83605; 84703; 85025; 86403; 87040; 87070; 87147; 87186; 87205; 93005; 96361; 96365; 99285; J0692; J1885; J2060; J2270; J3370; J7030; J7050

== ENCOUNTER 2017-09-10 05:12 | Emergency (ER) | payer SELFPAY ==
[2017-09-10 05:22] VITALS: BP 127/73; PULSE 113; RESP 16; TEMP 98.7; O2SAT 98
[2017-09-10] MEDS ORDERED: DALBAVANCIN INJ 1,500 MG in DEXTROSE 5% IN WATE 500 ML INJ 500 ML IV STA ×2 (07:35)
[2017-09-10] MEDS ORDERED: SODIUM CHLOR 0.9% 1000 ML INJ 1,000 ML IV ONE (07:45)
[2017-09-10] MEDS ORDERED: MISCELLANEOUS PHARMACY INFORMATION XX ONE (07:45)
[2017-09-10] MEDS ORDERED: ASP: No known hypersensitivity to Vanco, Telavancin, Dalbavancin OTHER ONE (07:45)
[2017-09-10] MEDS ORDERED: ASP: Location of Dalbavancin administration OTHER ONE (07:45)
[2017-09-10] MEDS ORDERED: ASP: Does not meet inpatient admission criteria OTHER ONE (07:45)
[2017-09-10] MEDS ORDERED: ASP: Only reason for admit - IV antibiotics OTHER ONE (07:45)
[2017-09-10] MEDS ORDERED: KETOROLAC TROMETHAMINE 30 MG/ML (IVP) VIAL IVP ONE (07:45)
[2017-09-10 07:46] VITALS: BP 112/60; PULSE 84; RESP 18; TEMP 99.2; O2SAT 96
[2017-09-10 07:58] LABS: AUTOMATED NEUTROPHIL # 6.8 TH/MM3 (1.8-7.7); BASOPHIL # 0.1 TH/MM3 (0-0.2); BASOPHIL % 0.9 % (0.0-2.0); EOSINOPHIL # 0.3 TH/MM3 (0-0.4); EOSINOPHIL % 2.9 % (0.0-4.0); HEMATOCRIT 33.5 % (35.0-46.0); HEMOGLOBIN 11.3 GM/DL (11.6-15.3); LYMPH % 17.5 % (9.0-44.0); LYMPHOCYTE # 1.7 TH/MM3 (1.0-4.8); MEAN CELL VOLUME 80.8 FL (80.0-100.0); MEAN CORPUSCULAR HEMOGLOBIN 27.3 PG (27.0-34.0); MEAN CORPUSCULAR HGB CONC 33.8 % (32.0-36.0); MEAN PLATELET VOLUME 8.2 FL (7.0-11.0); MONO % 8.7 % (0.0-8.0); MONOCYTE # 0.8 TH/MM3 (0-0.9); PLATELET COUNT 259 TH/MM3 (150-450); RED BLOOD COUNT 4.14 MIL/MM3 (4.00-5.30); RED CELL DISTRIBUTION WIDTH 13.4 % (11.6-17.2); WHITE BLOOD COUNT 9.7 TH/MM3 (4.0-11.0)
--- NOTE | 2017-09-10 08:03 | PD ---
HPI Chief Complaint: Skin Problem Time Seen by Provider: 07:22 Travel History International Travel<30 days: No Contact w/Intl Traveler<30days: No Traveled to known affect area: No History of Present Illness HPI 26-year-old woman presents emergency department with left upper extremity abscess. She was seen yesterday, abscess was drained, was felt to have early sepsis. She given IV antibiotics but had to leave AMA speak to her mom and arrange for childcare. She presents back. She is feeling better. Symptoms have significantly diminished. She still has a fair amount of pain and swelling in the left arm. She is a history of IV drug use. She did inject heroin in the area where she had the abscess. Fevers and chills have improved. Symptoms started about 3 days ago or so. No symptoms prior to that. No night sweats fevers or other symptoms. History Past Medical History Narrative Medical Active IV drug use : 1 Para: 1 Past Surgical History Surgical History: No Previous Surgery Social History Alcohol Use: No Tobacco Use: Yes (06/08 PPD) Allergies-Medications (Allergen,Severity, Reaction): Coded Allergies: penicillin G (Unverified Allergy, Intermediate, Hives, 09/08/17) Reported Meds & Prescriptions Reported Meds & Active Scripts Active Bactrim DS (Sulfamethoxazole-Trimethoprim) 800-160 Mg Tab 1 Tab PO BID Epipen 2-Ghassan Inj (Epinephrine) 0.3 Mg/0.3 Ml Pfpen 0.3 Mg IM ONCE PRN Prednisone 50 Mg Tab 50 Mg PO DAILY 5 Days Reported Bactrim (Sulfamethoxazole-Trimethoprim) 400-80 Mg Tab 1 Tab PO BID Review of Systems Except as stated in HPI: all other systems reviewed are Neg Physical Exam Narrative GENERAL: Well-appearing 26-year-old woman, no acute distress. SKIN: Focused skin assessment warm/dry. HEAD: Atraumatic. Normocephalic. EYES: Pupils equal and round. No scleral icterus. No injection or drainage. ENT: No nasal bleeding or discharge. Mucous membranes pink and moist. NECK: Trachea midline. No JVD. CARDIOVASCULAR: Regular rate and rhythm. No murmur. RESPIRATORY: No accessory muscle use. Clear to auscultation. Breath sounds equal bilaterally. GASTROINTESTINAL: Abdomen soft, non-tender, nondistended. Hepatic and splenic margins not palpable. MUSCULOSKELETAL: No obvious deformities. Left upper extremity has draining abscesses. One small wick is come out, the second and the larger hole is been removed. Small incisions. Area of redness has diminished. There is a little bit of desquamation of the smaller abscess superficial skin. Symptoms generalized swelling to the arm, mild, distal extremity appears unaffected. NEUROLOGICAL: Awake and alert. No obvious cranial nerve deficits. Motor grossly within normal limits. Normal speech. PSYCHIATRIC: Appropriate mood and affect; insight and judgment normal. Data Data Last Documented VS Vital Signs Date Time Temp Pulse Resp B/P (MAP) Pulse Ox O2 Delivery O2 Flow Rate FiO2 09/10/17 07:46 99.2 84 18 112/60 (77) 96 Room Air Orders Orders Complete Blood Count With Diff (09/10/17 07:35) Comprehensive Metabolic Panel (09/10/17 07:35) Case Management Consult (09/10/17 ) Asp:No Reaction To [place]/Vanc (Asp Crit (09/10/17 07:45) Asp: Does Not Meet Inpt Admit (Asp Crit: (09/10/17 07:45) Asp: Iv Antibiotics Admit Only (Asp Crit (09/10/17 07:45) Asp: Location Of [place] Admin (Asp Crit: (09/10/17 07:45) [facility] ([facility] (09/10/17 07:45) Dalbavancin Inj (Dalvance Inj) (09/10/17 07:35) Kyler Bandage (09/10/17 07:35) Elevate (09/10/17 07:35) Document (09/10/17 07:35) Measurements (09/10/17 07:35) Sodium Chlor 0.9% 1000 Ml Inj (Ns 1000 M (09/10/17 07:45) Ketorolac Inj (Toradol Inj) (09/10/17 07:45) Labs Laboratory Tests Test 09/10/17 07:35 White Blood Count 9.7 TH/MM3 Red Blood Count 4.14 MIL/MM3 Hemoglobin 11.3 GM/DL Hematocrit 33.5 % Mean Corpuscular Volume 80.8 FL Mean Corpuscular Hemoglobin 27.3 PG Mean Corpuscular Hemoglobin Concent 33.8 % Red Cell Distribution Width 13.4 % Platelet Count 259 TH/MM3 Mean Platelet Volume 8.2 FL Neutrophils (%) (Auto) 70.0 % Lymphocytes (%) (Auto) 17.5 % Monocytes (%) (Auto) 8.7 % Eosinophils (%) (Auto) 2.9 % Basophils (%) (Auto) 0.9 % Neutrophils # (Auto) 6.8 TH/MM3 Lymphocytes # (Auto) 1.7 TH/MM3 Monocytes # (Auto) 0.8 TH/MM3 Eosinophils # (Auto) 0.3 TH/MM3 Basophils # (Auto) 0.1 TH/MM3 CBC Comment DIFF FINAL Differential Comment Blood Urea Nitrogen 5 MG/DL Creatinine 0.41 MG/DL Random Glucose 93 MG/DL Total Protein 7.5 GM/DL Albumin 3.1 GM/DL Calcium Level 8.9 MG/DL Alkaline Phosphatase 105 U/L Aspartate Amino Transf (AST/SGOT) 53 U/L Alanine Aminotransferase (ALT/SGPT) 57 U/L Total Bilirubin 0.4 MG/DL Sodium Level 139 MEQ/L Potassium Level 4.3 MEQ/L Chloride Level 106 MEQ/L Carbon Dioxide Level 25.1 MEQ/L Anion Gap 8 MEQ/L Estimat Glomerular Filtration Rate 189 ML/MIN [facility] Medical Decision Making Medical Screen Exam Complete: Yes Emergency Medical Condition: Yes Interpretation(s) LABS: CBC is unremarkable. CMP, mild elevation of liver enzymes. Otherwise unremarkable. Differential Diagnosis Cellulitis, abscess, infection, other Narrative Course Medical decision making Is a 26-year-old woman who presents to the emergency department with abscess of the upper extremity, drained yesterday, still some surrounding cellulitis. Minimal tachycardia. No fevers. Looks much improved. I do not think she is septic at this point. I think she would be a good candidate for IV dalvance, and defer inpatient admission. Patient's comfortable with this plan. Return for wound check in 48 hours. Diagnosis Primary Impression: Abscess Additional Impression: IV drug abuse Additional Instructions: Keep arm wrapped and elevated for comfort. Take ibuprofen or Aleve as needed for pain. Return to the emergency department 48 hours for wound check. Follow-up with your primary doctor in 1-2 weeks. Avoid IV drug use. Med/Other Pt SpecificInfo: No Change to Meds Disposition: 01 DISCHARGE HOME Condition: Stable Estuardo Cedillo MD Sep 10, 2017 08:03
[2017-09-10 08:47] LABS: ALBUMIN 3.1 GM/DL (3.4-5.0); ALKALINE PHOSPHATASE 105 U/L (45-117); ALT (GPT) 57 U/L (10-53); BICARBONATE 25.1 MEQ/L (21.0-32.0); BLOOD UREA NITROGEN 5 MG/DL (7-18); CALCIUM 8.9 MG/DL (8.5-10.1); CHLORIDE 106 MEQ/L (98-107); CREATININE 0.41 MG/DL (0.50-1.00); GLOMERULAR FILTRATION RATE 189 ML/MIN (>89); GLUCOSE,RANDOM 93 MG/DL (74-106); SODIUM (NA) 139 MEQ/L (136-145); TOTAL BILIRUBIN ADULT 0.4 MG/DL (0.2-1.0); TOTAL PROTEIN 7.5 GM/DL (6.4-8.2)
[2017-09-10 08:50] LABS: AST (GOT) 53 U/L (15-37)
[2017-09-10 10:33] VITALS: BP 102/63; PULSE 84; RESP 16; O2SAT 100
[2017-09-10 10:41] VITALS: BP 101/57; PULSE 81; RESP 16; TEMP 97.7; O2SAT 99
== END 2017-09-10 12:42 | disposition home or self-care (01) ==
LOC: NEPE 05:12
DX: L02.414 Cutaneous abscess of left upper limb (principal); F19.10 Other psychoactive substance abuse, uncomplicated; F17.200 Nicotine dependence, unspecified, uncomplicated
CPT/HCPCS: 80053; 85025; 96361; 96365; 96366; 96375; 99284; J0875; J1885; J7030; J7060

== ENCOUNTER 2017-09-26 04:39 | Emergency (ER) | payer SELFPAY ==
[~2017-09-26] VITALS: Ht 157.5 cm; Wt 50.0 kg
[2017-09-26 04:48] VITALS: BP 107/56; PULSE 128; RESP 15; TEMP 102.8; O2SAT 96
[2017-09-26] MEDS ORDERED: VANCOMYCIN INJ 1,000 MG in SODIUM CHLOR 0.9% 250 ML INJ 250 ML IV ONE (05:15)
[2017-09-26 05:27] LABS: AUTOMATED NEUTROPHIL # 8.9 TH/MM3 (1.8-7.7); BASOPHIL % 0.2 % (0.0-2.0); EOSINOPHIL # 0.1 TH/MM3 (0-0.4); EOSINOPHIL % 0.9 % (0.0-4.0); HEMATOCRIT 37.9 % (35.0-46.0); HEMOGLOBIN 12.8 GM/DL (11.6-15.3); LYMPH % 5.9 % (9.0-44.0); LYMPHOCYTE # 0.6 TH/MM3 (1.0-4.8); MEAN CELL VOLUME 80.5 FL (80.0-100.0); MEAN CORPUSCULAR HEMOGLOBIN 27.2 PG (27.0-34.0); MEAN CORPUSCULAR HGB CONC 33.8 % (32.0-36.0); MONO % 5.1 % (0.0-8.0); MONOCYTE # 0.5 TH/MM3 (0-0.9); NEUT % 87.9 % (16.0-70.0); PLATELET COUNT 197 TH/MM3 (150-450); RED BLOOD COUNT 4.71 MIL/MM3 (4.00-5.30); RED CELL DISTRIBUTION WIDTH 14.2 % (11.6-17.2); WHITE BLOOD COUNT 10.2 TH/MM3 (4.0-11.0)
[2017-09-26 05:42] LABS: ALBUMIN 3.6 GM/DL (3.4-5.0); ALT (GPT) 76 U/L (10-53); AST (GOT) 75 U/L (15-37); BLOOD UREA NITROGEN 13 MG/DL (7-18); CALCIUM 9.1 MG/DL (8.5-10.1); CHLORIDE 101 MEQ/L (98-107); CREATININE 0.76 MG/DL (0.50-1.00); GLOMERULAR FILTRATION RATE 93 ML/MIN (>89); GLUCOSE,RANDOM 123 MG/DL (74-106); SODIUM (NA) 138 MEQ/L (136-145)
[2017-09-26 05:44] LABS: ALKALINE PHOSPHATASE 144 U/L (45-117); TOTAL BILIRUBIN ADULT 0.5 MG/DL (0.2-1.0); TOTAL PROTEIN 8.1 GM/DL (6.4-8.2)
--- NOTE | 2017-09-26 05:44 | PD ---
HPI Chief Complaint: Skin Problem Time Seen by Provider: 04:53 Travel History International Travel<30 days: No Contact w/Intl Traveler<30days: No Traveled to known affect area: No History of Present Illness HPI 26-year-old female complaints of pain and swelling of bilateral arms. Patient has history IV drug abuse. Patient was seen in the emergency room September 09, 2016. Patient had I&D an abscess. Patient was given IV antibiotics and left AMA. Patient came back September 10, 2016. Patient was given Dalvance IV. Patient was discharged home. Patient states that she has increasing redness swelling bilateral arms since then. Patient states that the redness swelling and the pain is worse on the right forearm. Patient denies any new injury. Patient states that she has not abused any IV drug since last visit. Patient started running fever since last night. PFSH Past Medical History Anxiety: Yes Depression: Yes Cancer: No Cardiovascular Problems: No Diminished Hearing: No Endocrine: No Genitourinary: No Immune Disorder: No Musculoskeletal: No Neurologic: Yes Psychiatric: Yes Reproductive: No Respiratory: No Immunizations Current: Yes Migraines: Yes ?: Unknown : 1 Para: 1 Past Surgical History Surgical History: No Previous Surgery Social History Alcohol Use: No Tobacco Use: Yes (06/08 PPD) Substance Use: Yes (IVDU) Allergies-Medications (Allergen,Severity, Reaction): Coded Allergies: penicillin G (Unverified Allergy, Intermediate, Hives, 09/08/17) Reported Meds & Prescriptions Reported Meds & Active Scripts Active Bactrim DS (Sulfamethoxazole-Trimethoprim) 800-160 Mg Tab 1 Tab PO BID Epipen 2-Ghassan Inj (Epinephrine) 0.3 Mg/0.3 Ml Pfpen 0.3 Mg IM ONCE PRN Prednisone 50 Mg Tab 50 Mg PO DAILY 5 Days Reported Bactrim (Sulfamethoxazole-Trimethoprim) 400-80 Mg Tab 1 Tab PO BID Review of Systems General / Constitutional: No: Fever Eyes: No: Visual changes HENT: No: Headaches Cardiovascular: No: Chest Pain or Discomfort Respiratory: No: Shortness of Breath Gastrointestinal: No: Abdominal Pain Genitourinary: No: Dysuria Musculoskeletal: No: Pain Skin: No Rash Neurologic: No: Weakness Psychiatric: No: Depression Endocrine: No: Polydipsia Hematologic/Lymphatic: No: Easy Bruising Physical Exam Narrative GENERAL: Well-nourished, well-developed patient. SKIN: Focused skin assessment warm/dry. HEAD: Normocephalic. EYES: No scleral icterus. No injection or drainage. NECK: Supple, trachea midline. No JVD or lymphadenopathy. CARDIOVASCULAR: Regular rate and rhythm without murmurs, gallops, or rubs. RESPIRATORY: Breath sounds equal bilaterally. No accessory muscle use. GASTROINTESTINAL: Abdomen soft, non-tender, nondistended. MUSCULOSKELETAL: No cyanosis, or edema. BACK: Nontender without obvious deformity. No CVA tenderness. Patient has a large area of redness swelling induration right forearm. Patient has small area of redness swelling induration left forearm. Data Data Last Documented VS Vital Signs Date Time Temp Pulse Resp B/P (MAP) Pulse Ox O2 Delivery O2 Flow Rate FiO2 09/26/17 06:05 101.5 111 12 114/56 (75) 97 Room Air Orders Orders Complete Blood Count With Diff (09/26/17 05:06) Comprehensive Metabolic Panel (09/26/17 05:06) Blood Culture (09/26/17 05:06) Wound Culture And Gram Stain (09/26/17 05:06) Iv Access Insert/Monitor (09/26/17 05:06) Vancomycin Inj (Vancomycin Inj) (09/26/17 05:15) Lactic Acid (09/26/17 05:13) Acetaminophen (Tylenol) (09/26/17 06:00) Ketorolac Inj (Toradol Inj) (09/26/17 06:00) Sodium Chlor 0.9% 1000 Ml Inj (Ns 1000 M (09/26/17 06:00) Labs Laboratory Tests Test 09/26/17 05:15 White Blood Count 10.2 TH/MM3 Red Blood Count 4.71 MIL/MM3 Hemoglobin 12.8 GM/DL Hematocrit 37.9 % Mean Corpuscular Volume 80.5 FL Mean Corpuscular Hemoglobin 27.2 PG Mean Corpuscular Hemoglobin Concent 33.8 % Red Cell Distribution Width 14.2 % Platelet Count 197 TH/MM3 Mean Platelet Volume 8.0 FL Neutrophils (%) (Auto) 87.9 % Lymphocytes (%) (Auto) 5.9 % Monocytes (%) (Auto) 5.1 % Eosinophils (%) (Auto) 0.9 % Basophils (%) (Auto) 0.2 % Neutrophils # (Auto) 8.9 TH/MM3 Lymphocytes # (Auto) 0.6 TH/MM3 Monocytes # (Auto) 0.5 TH/MM3 Eosinophils # (Auto) 0.1 TH/MM3 Basophils # (Auto) 0.0 TH/MM3 CBC Comment DIFF FINAL Differential Comment Blood Urea Nitrogen 13 MG/DL Creatinine 0.76 MG/DL Random Glucose 123 MG/DL Total Protein 8.1 GM/DL Albumin 3.6 GM/DL Calcium Level 9.1 MG/DL Alkaline Phosphatase 144 U/L Aspartate Amino Transf (AST/SGOT) 75 U/L Alanine Aminotransferase (ALT/SGPT) 76 U/L Total Bilirubin 0.5 MG/DL Sodium Level 138 MEQ/L Potassium Level 3.6 MEQ/L Chloride Level 101 MEQ/L Carbon Dioxide Level 28.0 MEQ/L Anion Gap 9 MEQ/L Estimat Glomerular Filtration Rate 93 ML/MIN Lactic Acid Level 2.6 mmol/L MDM Medical Decision Making Medical Screen Exam Complete: Yes Emergency Medical Condition: Yes Interpretation(s) 6:26 AM. CBC WBC 10.2. 87 neutrophil. Lactic acid 2.6. AST 75. ALT 76. Alkaline phosphatase 144. Differential Diagnosis Differential diagnosis includes abscess. Narrative Course 26-year-old female with bilateral forearm abscess. History IV drug abuse. I&D of bilateral forearm abscess. Vancomycin 1 g IV given. Wound culture obtained. Bactrim DS 1 tablet p.o. given. Normal saline solution 1 L IV bolus. Tylenol 650 mg p.o. Toradol 30 mg IV. Procedures Procedure Narrative I&D procedure note: The wound was cleaned with Betadine solution. 1% lidocaine local anesthesia. 1 cm incision was made on the left forearm. Small amount of pus recovered. 1.5 cm incision was made on the right forearm. A large amount of pus recovered. Wound culture obtained. 0.5 inch packing applied to both forearms. Dressing applied. Diagnosis Primary Impression: Abscess Patient Instructions: General Instructions Additional Instructions: Keep the wound clean and dry. Take antibiotic as directed. Return in a.m. for recheck. Med/Other Pt SpecificInfo: Prescription(s) given Scripts Clindamycin (Clindamycin) 150 Mg Cap 300 MG PO QID for Infection, #80 CAP 0 Refills Prov: Eric Jay MD 09/26/17 Sulfamethoxazole-Trimethoprim (Bactrim DS) 800-160 Mg Tab 1 TAB PO BID for Infection, #20 TAB 0 Refills Prov: Eric Jay MD 09/26/17 Disposition: 01 DISCHARGE HOME Condition: Stable Eric Jay MD Sep 26, 2017 05:44
[2017-09-26] MEDS ORDERED: KETOROLAC TROMETHAMINE 30 MG/ML (IVP) VIAL IV PUSH ONE (06:00)
[2017-09-26] MEDS ORDERED: ACETAMINOPHEN 325 MG TAB PO ONE (06:00)
[2017-09-26] MEDS ORDERED: SODIUM CHLOR 0.9% 1000 ML INJ 1,000 ML IV ONE (06:00)
[2017-09-26 06:05] VITALS: BP 114/56; PULSE 111; RESP 12; TEMP 101.5; O2SAT 97
[2017-09-26] MEDS ORDERED: SULFAMETHOXAZOLE-TRIMETHOPRIM DS 800-160 MG TAB PO ONE (06:30)
[2017-09-26] MEDS ORDERED: CLIN150C14 PO (06:30)
[2017-09-26] MEDS ORDERED: BACT800T5 PO (06:30)
[2017-09-26 06:42] VITALS: BP 98/50; PULSE 106; RESP 14; TEMP 100.5; O2SAT 96
== END 2017-09-26 06:59 | disposition home or self-care (01) ==
LOC: NEPC 04:39
DX: L02.413 Cutaneous abscess of right upper limb (principal); L02.414 Cutaneous abscess of left upper limb; F17.200 Nicotine dependence, unspecified, uncomplicated; F19.10 Other psychoactive substance abuse, uncomplicated
CPT/HCPCS: 10060; 80053; 83605; 85025; 87040; 87070; 87077; 87185; 96374; 96375; 99282; J1885; J3370; J7030; J7050

== ENCOUNTER 2017-09-30 01:40 | Emergency (ER) | payer SELFPAY ==
[~2017-09-30 01:40] MED LIST changes: +CLIN150C14 PO
== END 2017-09-30 02:03 | disposition left against medical advice (07) ==
LOC: NED 01:40
DX: Z03.89 Encounter for observation for other suspected diseases and conditions ruled out (principal)
CPT/HCPCS: 99281